=== PATIENT | female | born 1980 | race Caucasian/White ===

== ENCOUNTER 2017-04-19 20:36 | Emergency (ER) | payer BC ==
[~2017-04-19] VITALS: Ht 162.6 cm; Wt 77.1 kg
[~2017-04-19 20:36] MED LIST: PREDNISONE 20MG20 MG PO; SYNTHROID0.025 MG PO
--- NOTE | 2017-04-19 20:56 | Emergency Room Report ---
History of Present Illness Time Seen by 2030 Presenting Problem in Triage Pt arrived:Walked Presenting Problem:red wasp sting on right distal achilles tendon Onset of symptoms date/time:04/19/17 or onset unknown for: Treatment Prior to Arrival: benadryl 25mg 1100, tylenol 325mg 1600 [employer] Provided by:LAYPERSON Sepsis Risk Assessment: Temp: 97.9 B/P: 129/74 MAP: 92 Pulse: 81 Resp: 14 Recent fever? N Clinical Suspician of Infection? N Mental Status: 1 - Regular (Normal Baseline) Sepsis Risk:Low Sepsis Risk Have you (or family members/close friends) recently traveled outside the [place]? N If Yes, where/when: Have you had exposure to infectious disease within the past month? N TB? Other? Specify: Source patient, RN notes reviewed, family, old records Exam Limitations no limitations Comment sting rt lower leg this am with persistant swelling and tenderness with no wheezing Cardiac Chest Pain Chest pain indicative of cardiac No Timing/Duration this evening Severity moderate ALLERGIES Coded Allergies: No Known Allergies (12/06/15) Home Medications Active Scripts Prednisone (Prednisone 20MG) 20 MG PO BID #10 TAB Prov: 10/22/14 Reported Medications Levothyroxine Sodium (Synthroid 0.025MG) 0.025 MG PO DAILY History Medical History General CAD? No Angina: No SC: No Hypertension? No Hyperlipidemia? No CHF? No COPD? No Asthma? No Anemia? No Hernia? No Thyroid Problems? No Hypothyroidism? No CVA? No Seizures? No Diabetes? No End Stage Renal Disease? No UTI? No Stones? No GB Disease: No Nephritic Syndrome? No Asplenia? No Hepatitis? No Sickle Cell Disease? No Arthritis? No Cataracts? No Glaucoma? No MRSA? No TB? No Cancer? 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 Respiratory denies cough, denies shortness of breath, denies wheezing Cardiovascular denies chest pain, denies syncope Gastrointestinal see HPI, denies abdominal pain, nausea, denies vomiting Genitourinary denies: dysuria, frequency, hesitancy, hematuria. Musculoskeletal denies back pain, denies joint pain, denies neck pain Skin see HPI, denies rash, other Psychiatric/Neurological denies headache, denies seizure Physical Exam Vital Signs Vital Signs Date Time Temp Pulse Resp B/P Pulse O2 O2 Flow FiO2 Ox Delivery Rate 04/19 2041 97.9 81 14 129/74 99 - WBC >12,000 or <4,000 or 10% bands? 2 or more SIRS Criteria Met? B/P:129/74 MAP:92 Creatinine >2.0? UA output<0.5ml/kg/hr for 2 hrs? Platelet count >100,000? Lactate >2.0mmol/1? INR >1.2 or PTT > than 60 sec? Evidence of Organ Dysfunction? Provider documented clinical suspician of infection? N Sepsis Criteria Count: 0 Sepsis Risk: Low Sepsis Risk General Appearance no apparent distress Eye Exam - bilateral eye PERRL, bilateral eye EOMI Ear, Nose, Throat normal ENT inspection Neck non-tender Respiratory Status No: respiratory distress. 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 No Departure Departure Time of Disposition 2053 Disposition DC Home or Self Care(routine) Clinical Impression Primary Impression: Bee sting reaction Qualifiers: Encounter type: initial encounter Injury intent: accidental or unintentional Qualified Code: T63.441A - Toxic effect of venom of bees, accidental (unintentional), initial encounter Condition STABLE Referrals Gama Rucker MD (Family) Patient Instructions DI for Insect Bites and Stings Additional Instructions use meds and see pcp for follow up Discharge Counseling Counseled pt/family regarding diagnosis, follow up needs Prescriptions Current Visit Scripts Prednisone (Prednisone 20MG) 20 MG PO BID #10 TAB CEPHALEXIN (Keflex 500MG Capsule) 500 MG PO Q8H #21 CAP ED Critical Care Critical Care No at [id number]
--- NOTE | 2017-04-19 20:56 | Emergency Room Report ---
History of Present Illness Time Seen by 2030 Presenting Problem in Triage Pt arrived:Walked Presenting Problem:red wasp sting on right distal achilles tendon Onset of symptoms date/time:04/19/17 or onset unknown for: Treatment Prior to Arrival: benadryl 25mg 1100, tylenol 325mg 1600 [address] [place] Provided by:LAYPERSON Sepsis Risk Assessment: Temp: 97.9 B/P: 129/74 MAP: 92 Pulse: 81 Resp: 14 Recent fever? N Clinical Suspician of Infection? N Mental Status: 1 - Regular (Normal Baseline) Sepsis Risk:Low Sepsis Risk Have you (or family members/close friends) recently traveled outside the [place]? N If Yes, where/when: Have you had exposure to infectious disease within the past month? N TB? Other? Specify: Source patient, RN notes reviewed, family, old records Exam Limitations no limitations Comment sting rt lower leg this am with persistant swelling and tenderness with no wheezing Cardiac Chest Pain Chest pain indicative of cardiac No Timing/Duration this evening Severity moderate ALLERGIES Coded Allergies: No Known Allergies (12/06/15) Home Medications Active Scripts Prednisone (Prednisone 20MG) 20 MG PO BID #10 TAB Prov: 10/22/14 Reported Medications Levothyroxine Sodium (Synthroid 0.025MG) 0.025 MG PO DAILY History Medical History General CAD? No Angina: No ND: No Hypertension? No Hyperlipidemia? No CHF? No COPD? No Asthma? No Anemia? No Hernia? No Thyroid Problems? No Hypothyroidism? No CVA? No Seizures? No Diabetes? No End Stage Renal Disease? No UTI? No Stones? No GB Disease: No Nephritic Syndrome? No Asplenia? No Hepatitis? No Sickle Cell Disease? No Arthritis? No Cataracts? No Glaucoma? No MRSA? No TB? No Cancer? 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 Respiratory denies cough, denies shortness of breath, denies wheezing Cardiovascular denies chest pain, denies syncope Gastrointestinal see HPI, denies abdominal pain, nausea, denies vomiting Genitourinary denies: dysuria, frequency, hesitancy, hematuria. Musculoskeletal denies back pain, denies joint pain, denies neck pain Skin see HPI, denies rash, other Psychiatric/Neurological denies headache, denies seizure Physical Exam Vital Signs Vital Signs Date Time Temp Pulse Resp B/P Pulse O2 O2 Flow FiO2 Ox Delivery Rate 04/19 2041 97.9 81 14 129/74 99 - WBC >12,000 or <4,000 or 10% bands? 2 or more SIRS Criteria Met? B/P:129/74 MAP:92 Creatinine >2.0? UA output<0.5ml/kg/hr for 2 hrs? Platelet count >100,000? Lactate >2.0mmol/1? INR >1.2 or PTT > than 60 sec? Evidence of Organ Dysfunction? Provider documented clinical suspician of infection? N Sepsis Criteria Count: 0 Sepsis Risk: Low Sepsis Risk General Appearance no apparent distress Eye Exam - bilateral eye PERRL, bilateral eye EOMI Ear, Nose, Throat normal ENT inspection Neck non-tender Respiratory Status No: respiratory distress. 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 No Departure Departure Time of Disposition 2053 Disposition DC Home or Self Care(routine) Clinical Impression Primary Impression: Bee sting reaction Qualifiers: Encounter type: initial encounter Injury intent: accidental or unintentional Qualified Code: T63.441A - Toxic effect of venom of bees, accidental (unintentional), initial encounter Condition STABLE Referrals Gama Rucker MD (Family) Patient Instructions DI for Insect Bites and Stings Additional Instructions use meds and see pcp for follow up Discharge Counseling Counseled pt/family regarding diagnosis, follow up needs Prescriptions Current Visit Scripts Prednisone (Prednisone 20MG) 20 MG PO BID #10 TAB CEPHALEXIN (Keflex 500MG Capsule) 500 MG PO Q8H #21 CAP ED Critical Care Critical Care No at [id number]
[2017-04-19] MEDS ORDERED: PREDNISONE 20MG20 MG PO ×2 (21:06→21:32)
[2017-04-19] MEDS ORDERED: KEFLEX 500MG.500 MG PO ×2 (21:07→21:32)
[2017-04-19 21:31] VITALS: BP 122/71
== END 2017-04-19 21:44 | disposition home or self-care (01) ==
LOC: ER 20:36
DX: T63.441A Toxic effect of venom of bees, accidental (unintentional), initial encounter (principal); Z87.891 Personal history of nicotine dependence